=== PATIENT | male | born 1975 | race Caucasian/White ===

== ENCOUNTER 2017-06-19 20:23 | Emergency (ER) | payer OTHER ==
[~2017-06-19] VITALS: Ht 175.3 cm; Wt 74.8 kg
[2017-06-19 20:54] VITALS: BP 117/60
--- NOTE | 2017-06-19 20:54 | RADIOLOGY REPORT ---
EXAMINATION: XR WRIST, RIGHT CLINICAL INFORMATION: Pain status post injury COMPARISON: None TECHNIQUE: Four views of the right wrist. FINDINGS: Moderate degeneration of the radiocarpal articulation. Widening of scapholunate interval consistent with scapholunate dissociation. Tiny well-corticated ossific density adjacent to the pisiform likely sequela of an old injury versus accessory ossicle. Tiny well-corticated ossific density adjacent distal pole of the scaphoid also consistent with an ununited old fracture versus a somewhat atypical secondary ossicle. Soft tissue swelling dorsally. IMPRESSION: No definite acute fracture. Extensive chronic findings likely sequela of old injuries as above.
--- NOTE | 2017-06-19 21:38 | ED GENERAL ADULT ---
History of Present Illness General Chief Complaint: Upper Extremity Injury Stated Complaint: "RT WRIST INJURED AT WORK" Source: patient Exam Limitations: no limitations Vital Signs & Intake/Output Vital Signs & Intake/Output Vital Signs Date Time Temp Pulse Resp B/P B/P Pulse O2 O2 Flow FiO2 Mean Ox Delivery Rate 06/19 2053 98.2 54 17 117/60 98 Room Air Room Air Allergies Coded Allergies: MDX - PCN (penicillin) (PCN (PENICILLIN)) (UNKNOWN 06/19/17) Reconcile Medications Methylprednisolone. (Medrol) 4 MG TAB.DS.PK 1 DP PO AD tendonitis 6 on day 1 then reduce by one tablet daily until gone Naproxen (Naprosyn) 500 MG TABLET 1 TAB PO BID pain Triage Note: PT TO TRIAGE WITH RIGHT WRIST PAIN SINCE 1200 TODAY AFTER PUSHING UP ON A DOOR HANDLE AND HAVING IMMEDIATE PAIN. SOME SWELLING NOTED. PT STATES AT FIRST HE HAD TROUBLE MOVING THE HAND, BUT IS CURRENTLY ABLE TO MOVE IT SLOWLY. +[facility] Triage Nurses Notes Reviewed? yes Onset: Abrupt Duration: hour(s): Timing: single episode today HPI: 42-year-old right-hand dominant male with no known past medical history presenting with right wrist pain 9 hours. Patient states that he was getting into his truck and used his right wrist to push against the seat when he began to feel pain on the ulnar aspect. Also endorses numbness and paresthesias into the fourth and fifth digits. No fevers or redness. (Karen Jo) Past History Travel History Traveled to [place] past 21 day No Medical History Any Pertinent Medical History? none Neurological: NONE EENT: NONE Cardiovascular: NONE Respiratory: NONE Gastrointestinal: NONE Hepatic: NONE Renal: NONE Musculoskeletal: NONE Psychiatric: NONE Endocrine: NONE Blood Disorders: NONE Cancer(s): NONE SPEECH AND LANGUAGE CLINICIAN/Reproductive: NONE Surgical History Surgical History: non-contributory Psychosocial History What is your primary language Serbian Tobacco Use: Current Daily Use Daily Tobacco Use Amount/Type: => 5 Cigarettes daily ETOH Use: denies use Illicit Drug Use: marijuana Family History Hx Contributory? No (Karen Jo) Review of Systems Review of Systems Constitutional: Reports: no symptoms. EENTM: Reports: no symptoms. Respiratory: Reports: no symptoms. Cardiovascular: Reports: no symptoms. GI: Reports: no symptoms. Genitourinary: Reports: no symptoms. Musculoskeletal: Reports: see HPI. Skin: Reports: no symptoms. Neurological/Psychological: Reports: numbness, paresthesia. Hematologic/Endocrine: Reports: no symptoms. Immunologic/Allergic: Reports: no symptoms. (Karen Jo) Physical Exam Physical Exam General Appearance: well developed/nourished, no apparent distress, alert, awake , comfortable Head: atraumatic, normal appearance Eyes: Bilateral: normal appearance. Neck: normal inspection Respiratory: normal breath sounds, lungs clear Cardiovascular: regular rate/rhythm, normal peripheral pulses Gastrointestinal: soft, non-tender Back: normal inspection Extremities: normal inspection Neurologic/Psych: awake, alert, oriented x 3, normal gait, normal mood/affect Skin: intact, normal color, warm/dry Comments: On exam of the right wrist there are no abrasions, ecchymosis, edema, erythema, or other signs of trauma. There is positive tenderness to palpation over the ulnar aspect of the wrist, no scaphoid tenderness to palpation. Decreased range of motion in all directions. Sensation intact to median and radial nerves. Patient has decreased sensation in the ulnar distribution of the hand. Motor strength 5 out of 5. Radial pulse 2+. Core Measures ACS in differential dx? No CVA/TIA Diagnosis: No Sepsis Present: No Sepsis Focused Exam Completed? No (Karen Jo) Progress Differential Diagnoses I considered the following diagnoses in my evaluation of the patient: [Likely a tendinitis on the ulnar aspect with resulting ulnar neuropathy. Low concern for fracture or septic joint.] Plan of Care: Orders Procedure Date/time Status Durable Medical Equipment 06/19 2138 Active Given Rx naproxen and Medrol Dosepak. Placed in right wrist brace. Counseled on supportive care and strict return precautions. Will follow up with his PMD. Initial ED EKG: none (Karen Jo) Departure Departure Disposition: HOME OR SELF CARE Condition: Stable Clinical Impression Primary Impression: Tendonitis Secondary Impressions: Ulnar neuropathy Referrals: Zohreh Siddiqui MD (PCP/Family) Additional Instructions: Take naproxen and prednisone as prescribed. Follow-up with your primary care provider for reevaluation. Return to emergency department for any new or worsening symptoms. Departure Forms: Customer Survey General Discharge Information Prescriptions: Current Visit Scripts Naproxen (Naprosyn) 1 TAB PO BID #20 TAB Methylprednisolone. (Medrol) 1 DP PO AD #1 DP 6 on day 1 then reduce by one tablet daily until gone (Karen Jo) PA/TEXTILE CONSERVATOR Co-Sign Statement Statement: ED Attending supervision documentation- [] I saw and evaluated the patient. I have also reviewed all the pertinent lab results and diagnostic results. I agree with the findings and the plan of care as documented in the PA's/TEXTILE CONSERVATOR's documentation. [x] I have reviewed the ED Record and agree with the PA's/TEXTILE CONSERVATOR's documentation. [] Additions or exceptions (if any) to the PAs/TEXTILE CONSERVATOR's note and plan are summarized below: [] (Josephine JEEWLL,Anders Chapa) Critical Care Note Critical Care Note Critical Care Time: non-applicable (Karen Jo)
[2017-06-19] MEDS ORDERED: NAPROSYN500 M1 PO (21:46)
[2017-06-19] MEDS ORDERED: MEDROL4 M2 PO (21:46)
== END 2017-06-19 21:57 ==
LOC: ERH 20:23
DX: G56.20 Lesion of ulnar nerve, unspecified upper limb (principal); M77.8 Other enthesopathies, not elsewhere classified
CPT/HCPCS: 73110-RT